=== PATIENT | female | born 1955 | race Caucasian/White ===

== ENCOUNTER → 2024-04-23 | Outpatient (CLI) | payer MEDICARE, BC, SELFPAY ==
[2024-04-23 16:48] LABS: Basophils # (Auto) 0.1 Thou/mm3 (0.0-0.2); Basophils % (Auto) 1 % (0-2.5); Eosinophils # (Auto) 0.5 Thou/mm3 (0.0-0.5); Eosinophils % (Auto) 6 % (0-10); Hematocrit 37.7 % (36.0-46.0); Hemoglobin 12.2 g/dL (12.0-16.0); Immature Granulocytes % (Auto) 0 % (0-0); Immature Granulocytes Auto 0.03 Thou/mm3 (0.00-0.00); Lymphocytes # (Auto) 1.5 Thou/mm3 (1.0-4.8); Lymphocytes % (Auto) 19 % (10-50); Mean Corpuscular HGB Conc 32.4 g/dl (31.0-37.0); Mean Corpuscular Hemoglobin 28.1 pg (25.0-35.0); Mean Corpuscular Volume 87 fL (80-100); Monocytes # (Auto) 0.6 Thou/mm3 (0.0-0.8); Monocytes % (Auto) 7 % (0-12); Neutrophils # (Auto) 5.1 Thou/mm3 (1.8-7.7); Neutrophils % (Auto) 66 % (37-80); Nucleated Red Blood Cell % 0 /100 WBC (0); Platelet Count 299 Thou/mm3 (140-440); RDW Standard Deviation 45.3 fL (36.4-46.3); Red Blood Count 4.34 Miln/mm3 (4.00-5.20); White Blood Count 7.6 Thou/mm3 (3.6-11.0)
[2024-04-23 17:12] LABS: Alanine Aminotransferase 19 U/L (10-49); Albumin, Serum 4.3 gm/dL (3.4-4.8); Alkaline Phosphatase 116 U/L (46-116); Anion Gap 8 (7-16); Aspartate Amino Transferase 21 U/L (0-34); BUN/Creatinine Ratio 17 Ratio (12-20); Bilirubin,Total 0.3 mg/dL (0.3-1.2); Blood Urea Nitrogen 20 mg/dL (9-23); Calcium 9.6 mg/dL (8.3-10.6); Calcium (Corrected) 9.6 mg/dL (8.5-10.1); Carbon Dioxide 26.1 mMol/L (20.0-31.0); Cardiac Risk Estimate 1.9 RATIO (3.7-5.6); Chloride 105 mMol/L (98-107); Cholesterol 118 mg/dL (132-200); Creatinine (Component) 1.2 mg/dL (0.6-1.3); Globulin 2.2 gm/dL (2.3-3.5); Glucose 95 mg/dL (74-106); HDL Cholesterol 63 mg/dL (40-60); LDL Cholesterol,Calculated 38 mg/dL (0-130); Osmolality,Calculated 280 (275-295); Phosphorous 4.1 mg/dL (2.4-5.1); Potassium 4.9 mMol/L (3.4-5.1); Sodium 139 mMol/L (136-145); Thyroid Stimulating Hormone 1.01 uIU/mL (0.55-4.78); Total Protein 6.5 gm/dL (5.7-8.2); Triglycerides 87 mg/dL (30-150); eGFR 49 See Note
[2024-04-23 21:52] LABS: Iron 55 mcg/dL (50-170); Percent Iron Saturation 16 % (20-55); Total Iron Binding Capacity 336 mcg/dL (250-425); Unsaturated Iron Binding 281 (225-295)
== END | disposition home or self-care (01) ==
PROVIDERS: PCP Family Medicine; Referring Provider Internal Medicine; Visit Provider Nurse Practitioner Family
DX: Z00.00 Encounter for general adult medical examination without abnormal findings (principal); I12.9 Hypertensive chronic kidney disease with stage 1 through stage 4 chronic kidney disease, or unspecified chronic kidney disease; N18.2 Chronic kidney disease, stage 2 (mild); E78.2 Mixed hyperlipidemia; Z98.84 Bariatric surgery status; Z90.5 Acquired absence of kidney; N20.0 Calculus of kidney
CPT/HCPCS: 36415; 80053; 80061; 81001; 83540; 83550; 84100; 84443; 85025

== ENCOUNTER 2024-05-22 21:56 | Emergency (ER) | payer MEDICARE, BC, SELFPAY ==
[2024-05-22 21:56] VITALS: PULSE 94; RESP 18; O2SAT 96; BMI 34.7
[2024-05-23 00:03] VITALS: BP 127/81; PULSE 65; RESP 18; TEMP 37.1; O2SAT 95
--- NOTE | 2024-05-23 00:25 | XR_ITS ---
Examination: Knee, left , 3 views Technique: Knee AP, lateral, oblique 3 views Date and time of exam: May 23, 2024 1530 hrs. Indications: Knee pain and swelling today Findings: Mild to moderate tricompartment osteoarthritis, most prominent medial joint space Moderate knee effusion No fracture Impression: Mild to moderate tricompartment osteoarthritis
--- NOTE | 2024-05-23 00:29 | PD.EDLOWEX ---
Lower Extremity Injury RME/HPI General Chief Complaint: Extremity Injury, Lower Stated Complaint: L KNEE PAIN & CP Time Seen by Provider: 05/22/24 22:04 Arrival date/time: 05/22/24 21:56 68-year-old female reports with complaints of sudden onset of left knee pain that began today. Patient denies history of gout arthritis or injury to the knee. Patient states that she has been standing and walking around today with the green party but does not believe that that is the cause of the pain. She denies numbness tingling or weakness in the knee. Patient states that she has been taking Tylenol and she took 1 [place] with no relief of symptoms Limitations: no limitations Related Data Home Medications ?Medication ?Instructions ?Recorded ?Confirmed pantoprazole 40 mg tablet,delayed 40 mg PO BID 07/30/23 11/28/23 release vitamin B comp no.3-folic acid 1 1 tab PO QDAY 07/30/23 11/28/23 mg-vit C 60 mg-biotin 300 mcg tablet ([facility]) lisinopril 5 mg tablet 5 mg PO DAILY 11/28/23 11/28/23 Previous Rx's ?Medication ?Instructions ?Recorded atorvastatin 80 mg tablet 80 mg PO QDAY #30 tabs 12/31/22 clopidogrel 75 mg tablet 75 mg PO QDAY #21 tabs 12/31/22 Allergies Allergy/AdvReac Type Severity Reaction Status Date / Time Penicillins Allergy Unknown unknown Verified 05/22/24 21:59 Review of Systems Constitutional Constitutional: Denies fatigue and Denies fever(s) Musculoskeletal Musculoskeletal: Reports arthralgias, Denies deformity, Reports joint swelling, Denies numbness and Denies tingling Integumentary/Breasts Skin/Breast: Denies unusual bruising and Denies wounds Neurologic Neurologic: Denies numbness and Denies tingling Endocrine Endocrine: Denies fatigue ED Exam General Limitations: Present no limitations General appearance: Present alert and in no apparent distress Extremities Exam Extremities exam: Present normal inspection and full ROM Expanded Lower Extremity Exam Upper leg exam: Present normal inspection and full ROM Knee exam: Present tenderness (Patellofemoral tendon left knee), swelling (Diffusely over the left knee it), pain with valgus and pain with varus; Absent ecchymosis, deformity, dislocation, effusion, laxity with valgus or laxity with varus Lower leg exam: Present normal inspection and full ROM Ankle exam: Present normal inspection and full ROM Foot/toe exam: Present normal inspection and full ROM Neurological Exam Neurological exam: Present alert, oriented X3 and CN II-XII intact Psychiatric Psychiatric exam: Present normal affect and normal mood Skin Skin exam: Present warm, dry, intact and normal color Course Course Course Narrative: X-rays negative for fractures or dislocations but some degenerative changes are noted Quality Measures none Orders Category Date Time Status XR knee LT 3V Stat Exams 05/23/24 00:25 Taken Vital Signs Vital signs: Vital Signs Temperature 98.7 F 05/23/24 00:03 Pulse Rate 65 05/23/24 00:03 Respiratory Rate 18 05/23/24 00:03 Blood Pressure 127/81 05/23/24 00:03 Pulse Oximetry (%) 95 05/23/24 00:03 Oxygen Delivery Method Room Air 05/23/24 00:03 Extremity Injury, Lower Patient data External records reviewed:: None Clinical information provided by:: patient Social determinants that could affect healthcare access:: none Patient has the following chronic illnesses:: none How is presenting disease/condition affected by chronic disease/condition?: no chronic disease Evaluation data The following diagnostics were reviewed and interpreted by me:: radiology exam(s) Lab and/or radiology exams considered but not ordered:: none Interpretation Summary: Negative for fractures or dislocations but arthritic changes are noted Medications / Prescriptions Medications or Prescriptions considered but not ordered:: None Medication administrations:: None Consultations Consultation(s) initiated? (list below): No Diagnosis Most likely diagnosis given after review of the tests above:: Arthralgia Admission Indicated Admission indicated?: not indicated Admission Request Was there a request for admission?: No Disposition Plan Disposition Plan: Discharge Discharge Attestation Discharge Attestation: The patient and all family members were given an opportunity to ask questions and understood the discharge instructions. Discharge instructions specifically effects, indications for sooner follow up or return to the emergency department, and the expected course of current diagnosis. Patient condition: Stable Discharge Plan Plan Patient Disposition: HOME (Self Care) Prescriptions/Referrals Prescriptions/Med Rec: No Action pantoprazole 40 mg tablet,delayed release (DR/EC) 40 mg PO BID Patient Comments: TAKE 1 TABLET BY MOUTH TWICE A DAY FOR 90 DAYS [facility] 1-60-300 mg-mg-mcg tablet 1 tab PO QDAY Patient Comments: TAKE 1 TABLET BY MOUTH EVERY DAY lisinopril 5 mg tablet 5 mg PO DAILY Patient Comments: TAKE 1 TABLET BY MOUTH EVERY DAY FOR 90 DAYS atorvastatin 80 mg tablet 80 mg PO QDAY Qty: 30 2RF clopidogrel 75 mg tablet 75 mg PO QDAY Qty: 21 0RF Referrals: No Primary/Family,Physician [Primary Care Provider] - In 1 week Problem List Clinical Impression: Arthralgia Patient/Caregiver Discharge Instructions Discharge Activity: activity as tolerated Education Materials: ED Arthralgia Additional Instructions: Use your lidocaine patches and take medication such as Tylenol elevate your knee and rest follow-up with your primary care provider if no improvement in 3 Print Language: Lao Stand Alone Forms: [facility] Award Info., Patient Portal Info Letter
== END 2024-05-23 01:29 | disposition home or self-care (01) ==
PROVIDERS: Emergency Provider Emergency Medicine
DX: M25.562 Pain in left knee (principal)
CPT/HCPCS: 73562; 99283

== ENCOUNTER → 2024-10-22 | Outpatient (CLI) | payer MEDICARE, BC, SELFPAY ==
[2024-10-22 17:00] LABS: Anion Gap 10 (7-16); BUN/Creatinine Ratio 14 Ratio (12-20); Blood Urea Nitrogen 18 mg/dL (9-23); Carbon Dioxide 25.8 mMol/L (20.0-31.0); Chloride 106 mMol/L (98-107); Creatinine (Component) 1.3 mg/dL (0.6-1.3); Potassium 4.4 mMol/L (3.4-5.1); Sodium 142 mMol/L (136-145)
[2024-10-22 17:01] LABS: Albumin, Serum 4.1 gm/dL (3.4-4.8); Calcium 9.0 mg/dL (8.3-10.6); Calcium (Corrected) 9.0 mg/dL (8.5-10.1); Glucose 80 mg/dL (74-106); Osmolality,Calculated 284 (275-295); Phosphorous 3.2 mg/dL (2.4-5.1); eGFR 44 See Note
== END | disposition home or self-care (01) ==
LOC: COPL 15:48
PROVIDERS: PCP Family Medicine; Referring Provider Internal Medicine; Visit Provider Internal Medicine
DX: N18.31 Chronic kidney disease, stage 3a (principal); I10 Essential (primary) hypertension; N20.0 Calculus of kidney; N26.1 Atrophy of kidney (terminal); Z90.5 Acquired absence of kidney
CPT/HCPCS: 36415; 80069